=== PATIENT | male | born 1980 | race Caucasian/White ===

== ENCOUNTER 2017-02-23 16:39 | Emergency (ER) | payer BC ==
[2017-02-23 17:32] VITALS: BP 131/78
[2017-02-23] MEDS ORDERED: Acetaminophen/oxyCODONE 325-10 MG Tab PO PRN (17:43)
[2017-02-23] MEDS ORDERED: Lidocaine 1% 20 ML MDV INJECT ONE (17:43)
[2017-02-23] MEDS ORDERED: Bacitracin Oint 1 GM U/D Packet ONE ×2 (18:25→18:37)
--- NOTE | 2017-02-23 18:27 | EDM.PDOC ---
ED HPI GENERAL MEDICAL PROBLEM - General Chief Complaint: Laceration Stated Complaint: CUT RI INDEX FINGER Time Seen by Provider: 02/23/17 17:39 Source of Information: Reports: Patient History Limitations: Reports: No Limitations - History of Present Illness INITIAL COMMENTS - FREE TEXT/NARRATIVE: History of present illness: [36-year-old male presents with an injury to his left index finger. He was working with the garage door when the spring unloaded in hit him in the left index finger. He sustained about a 4 cm V-shaped laceration overlying the PIP joint of that finger. Functionally it is intact.] Review of systems: As per history of present illness and below otherwise all systems reviewed and negative. Past medical history: As per history of present illness and as reviewed below otherwise noncontributory. Surgical history: As per history of present illness and as reviewed below otherwise noncontributory. Social history: No reported history of drug or alcohol abuse. Family history: As per history of present illness and as reviewed below otherwise noncontributory. Physical exam: HEENT: Atraumatic, normocephalic, Lungs: Clear to auscultation, breath sounds equal bilaterally Heart: S1S2, regular Extremities: Examination of the finger in question does show the 4 cm V shaped laceration overlying the PIP joint of the left index finger. Finger somewhat mangled as far as the skin edges no tenderness structures were identified and functionally the finger was intact Neuro: Awake, alert, oriented. Exam nonfocal. Diagnostics: [X-rays reveal no fractures] Therapeutics: [Finger was prepped and draped the usual fashion 1% lidocaine was used for local infiltration The wound was closed with 4-0 Ethilon interrupted sutures as best that we could do much of the healing will have to occur by secondary intention as there is tissue loss with this injury. The wound was dressed with antibiotic ointment nonstick gauze and a tube dressing. He's to leave this on for at least a week and then going the clinic and soak it off and have a wound check. His tetanus is up-to-date] Impression: [Left index finger laceration] Plan: [Sutures out in [address] Bloom his primary can also assist determining when the best time for suture removal would be.] Definitive disposition and diagnosis as appropriate pending reevaluation and review of above. Left Hand Pain Score (Numeric/FACES): 6 - Related Data Allergies Allergy/AdvReac Type Severity Reaction Status Date / Time No Known Allergies Allergy Verified 02/23/17 17:30 Home Meds: Home Meds Etanercept [Enbrel] 1 ml IM ASDIRECTED 02/23/17 [History] Past Medical History Musculoskeletal History: Reports: Fracture, RA Other Musculoskeletal History: fx ribs toes - Infectious Disease History Infectious Disease History: Reports: Chicken Pox Social & Family History - Tobacco Use Smoking Status *Q: Never Smoker Second Hand Smoke Exposure: No - Caffeine Use Caffeine Use: Reports: Coffee - Recreational Drug Use Recreational Drug Use: No ED ROS GENERAL - Review of Systems Review Of Systems: ROS reveals no pertinent complaints other than HPI. ED EXAM, SKIN/RASH Exam: See Below Course - Vital Signs Last Recorded V/S: Last Vital Signs Temp 36.2 C 02/23/17 17:39 Pulse 59 L 02/23/17 17:39 Resp 18 02/23/17 17:39 BP 131/78 02/23/17 17:39 Pulse Ox 100 02/23/17 17:39 - Orders/Labs/Meds Orders: Active Orders 24 hr Category Date Time Status Fingers Second Digit Lt F1 [CR] Stat Exams 02/23/17 17:39 Taken Acetaminophen/oxyCODONE [Percocet 325-10 MG] Med 02/23/17 17:43 Active 1 tab PO ONETIME PRN Medication Orders Oxycodone/Acetaminophen (Percocet 325-10 Mg) 1 tab PO ONETIME PRN PRN Reason: Pain (severe 7-10) Last Admin: 02/23/17 17:46 Dose: 1 tab Meds: Medications Generic Name Dose Route Start Last Admin Trade Name Freq PRN Reason Stop Dose Admin Oxycodone/Acetaminophen 1 tab 02/23/17 17:43 02/23/17 17:46 Percocet 325-10 Mg PO 1 tab ONETIME PRN Administration Pain (severe 7-10) Discontinued Medications Generic Name Dose Route Start Last Admin Trade Name Freq PRN Reason Stop Dose Admin Lidocaine HCl 20 ml 02/23/17 17:43 02/23/17 17:58 Xylocaine 1% INJECT 02/23/17 17:44 20 ml ONETIME ONE Administration Departure - Departure Time of Disposition: 18:28 Disposition: Home, Self-Care 01 Condition: Good Clinical Impression: Finger laceration Qualifiers: Encounter type: initial encounter Finger: index finger Damage to nail status: without damage Foreign body presence: without foreign body Laterality: left Qualified Code(s): S61.211A - Laceration without foreign body of left index finger without damage to nail, initial encounter - Discharge Information Forms: ED Department Discharge Additional Instructions: Please follow-up with her primary care doctor in about a week and have him soak the gauze off in doing a wound check assist you in making recommendations for finishing up the healing process of your wound. I think your sutures should come out in about [address] Dunn can assist with this. - My Orders Last 24 Hours: My Active Orders 02/23/17 17:39 Fingers Second Digit Lt F1 [CR] Stat 02/23/17 17:43 Acetaminophen/oxyCODONE [Percocet 325-10 MG] 1 tab PO ONETIME PRN - Assessment/Plan Last 24 Hours: My Active Orders 02/23/17 17:39 Fingers Second Digit Lt F1 [CR] Stat 02/23/17 17:43 Acetaminophen/oxyCODONE [Percocet 325-10 MG] 1 tab PO ONETIME PRN
[2017-02-23] MEDS ORDERED: Bacitracin Oint 1 GM U/D Packet TOP ONE (18:45)
--- NOTE | 2017-02-25 09:18 | CR ---
Fingers Second Digit Lt F1 INDICATION: trauma, garage door spring accident FINDINGS: Negative left second digit. No acute fracture.
== END 2017-02-23 18:53 | disposition home or self-care (01) ==
LOC: JP.ED 16:39
DX: S61.211A Laceration without foreign body of left index finger without damage to nail, initial encounter (principal); W22.8XXA Striking against or struck by other objects, initial encounter
CPT/HCPCS: 12002; 73140; 99284; A9270

== ENCOUNTER 2020-06-07 15:26 | Emergency (ER) | payer BC ==
[2020-06-07 15:35] VITALS: BP 127/83; PULSE 82
[2020-06-07] MEDS ORDERED: Ketamine 500 MG/5 ML MDV NAS ONE (15:44)
[2020-06-07] MEDS ORDERED: fentaNYL 100 MCG/2 ML SDV IM ONE (15:44)
--- NOTE | 2020-06-07 15:46 | EDM.PDOC ---
ED HPI GENERAL MEDICAL PROBLEM - General Chief Complaint: Upper Extremity Injury/Pain Stated Complaint: LEFT HAND CUT FINGERS Time Seen by Provider: 06/07/20 15:39 Source of Information: Reports: Patient, Family, RN Notes Reviewed History Limitations: Reports: No Limitations - History of Present Illness INITIAL COMMENTS - FREE TEXT/NARRATIVE: 39-year-old gentleman presents emergency department today with a table saw injury unfortunately she he has tablesaw injuries to all digits on his left hand the most significant injury is that the digit #3 Left Finger-Middle Pain Score (Numeric/FACES): 7 - Related Data Allergies Allergy/AdvReac Type Severity Reaction Status Date / Time No Known Allergies Allergy Verified 06/07/20 15:33 Home Meds: Home Meds Etanercept [Enbrel] 1 ml IM ASDIRECTED 02/23/17 [History] Hydrocodone/Acetaminophen [Hydrocodon-Acetaminophen 5-325] 1 each PO Q4HR PRN #15 tablet 06/07/20 [Rx] cephALEXin [Keflex] 500 mg PO TID #15 capsule 06/07/20 [Rx] Past Medical History Musculoskeletal History: Reports: Fracture, RA Other Musculoskeletal History: fx ribs toes Immunologic History: Reports: Other (See Below) Other Immunologic History: RA - Infectious Disease History Infectious Disease History: Reports: Chicken Pox - Past Surgical History Head Surgeries/Procedures: Reports: None Musculoskeletal Surgical History: Reports: None Dermatological Surgical History: Reports: None Social & Family History - Tobacco Use Second Hand Smoke Exposure: No - Caffeine Use Caffeine Use: Reports: Coffee, Soda, Tea - Recreational Drug Use Recreational Drug Use: No Review of Systems - Review of Systems Review Of Systems: See Below Musculoskeletal: Reports: Hand Pain Skin: Reports: Wound ED EXAM, GENERAL - Physical Exam Exam: See Below Free Text/Narrative:: Examination of the left hand he has superficial lacerations digits 1-4 and 5 significant injury to the distal tip of digit #3 it appears to be split from the tip to the DIP joint radial pulses +2 he has full range of motion of all digits Exam Limited By: No Limitations General Appearance: Alert, WD/WN, No Apparent Distress Course - Vital Signs Last Recorded V/S: Last Vital Signs Temp 96.4 F L 06/07/20 15:35 Pulse 82 06/07/20 15:35 Resp 16 06/07/20 15:35 BP 127/83 06/07/20 15:35 Pulse Ox 97 06/07/20 15:35 - Orders/Labs/Meds Meds: Medications Discontinued Medications Generic Name Dose Route Start Last Admin Trade Name Nav PRN Reason Stop Dose Admin Bacitracin Confirm 06/07/20 16:59 Bacitracin Oint 1 Gm Administered 06/07/20 17:00 Dose 1 dose .ROUTE .STK-MED ONE Bupivacaine HCl 10 ml 06/07/20 16:17 06/07/20 16:23 Sensorcaine-Mpf 0.5% INJECT 06/07/20 16:18 10 ml ONETIME ONE Administration Fentanyl 50 mcg 06/07/20 15:44 06/07/20 15:50 Sublimaze IM 06/07/20 15:45 50 mcg ONETIME ONE Administration Ketamine HCl 30 mg 06/07/20 15:44 06/07/20 15:54 Ketalar MARCIA 06/07/20 15:45 30 mg ONETIME ONE Administration Departure - Departure Time of Disposition: 17:20 Disposition: Home, Self-Care 01 Condition: Good Clinical Impression: Amputation of left middle finger - Discharge Information Instructions: Traumatic Finger Amputation Referrals: Timo Dunn MD [Primary Care Provider] - Forms: ED Department Discharge Additional Instructions: Use ibuprofen for baseline pain control use hydrocodone for breakthrough pain, start your antibiotics today, please call for an appointment time with orthopedic follow-up in 10 days, your medications have been faxed to [facility] call or return to the emergency department worsening of symptoms Sepsis Event Note (ED) - Evaluation Sepsis Screening Result: No Definite Risk - Focused Exam Vital Signs: Vital Signs Temp Pulse Resp BP Pulse Ox 06/07/20 15:35 96.4 F L 82 16 127/83 97 06/07/20 15:30 96.4 F L 82 16 127/83 97 - Assessment/Plan Plan: Assessment Acuity = acute Site and laterality = amputation distal tip digit #3 left hand with superficial lacerations remaining fingers Etiology = tablesaw injury Manifestations = none Location of injury = Home Lab values = x-ray describes the amputation above Plan Consulted Dr. Chun orthopedic surgery he kindly agreed to come and evaluate the patient in the emergency department he did the repair prescriptions for Keflex 500 mg p.o. 3 times daily x5 days hydrocodone 5/325 1 to 2 tablets p.o. every 4 6 hours as needed #15 he does have follow-up appointment with o rthopedics This note was dictated using [employer] voice recognition software please call with any questions on syntax or grammar.
[2020-06-07] MEDS ORDERED: Bupivacaine 0.5% 10 ML SDV INJECT ONE (16:17)
--- NOTE | 2020-06-07 16:28 | CRLCR ---
Indication: Table saw injury Technique: Three images of the left hand were acquired Comparison: None Findings: There has been amputation of a portion of the soft tissues of the distal left index finger on the ulnar side. The bone in this area appears to be intact. There has been an oblique amputation of both soft tissue and bone regarding the distal-most left middle finger. A portion of the base of the distal phalanx is intact though there is marked comminution and fragmentation of the more distal bone. A significant portion of the bone of the distal phalanx of this finger and some of the soft tissue is no longer present. The remainder of the examination is unremarkable. Impression: Amputation of a portion of the soft tissues of the distal left index finger without associated osseous abnormality. Oblique amputation of both soft tissue and bone regarding the distal-most left middle finger as described Dictated by Sher Mendoza MD @ Jun 07 2020 4:22PM Signed by Dr. Sher Mendoza @ Jun 07 2020 4:26PM
[2020-06-07] MEDS ORDERED: Bacitracin Oint 1 GM U/D Packet ONE (16:59)
== END 2020-06-07 17:26 | disposition home or self-care (01) ==
LOC: JP.ED 15:26
DX: S68.623A Partial traumatic transphalangeal amputation of left middle finger, initial encounter (principal); W27.0XXA Contact with workbench tool, initial encounter
CPT/HCPCS: 73130; 96372; 99284; J3010; J3490